=== PATIENT | male | born 1970 ===

== ENCOUNTER → 2022-02-09 11:13 | Outpatient (CLI) | payer OTHER, SELFPAY ==
[2022-02-09 11:58] LABS: COVID19 -Nasal RAPID Negative (Negative)
--- NOTE | 2022-02-14 10:17 | PM.PFT.1 ---
Pulmonary Function Test Referral & Results Date Patient Seen: 02/09/22 Requesting provider: Norbert Villatoro Results: The spirometry demonstrates an FVC of 4.77 L which is 88% of predicted. The FEV1 was measured at 3.50 L which is 83% of predicted. The FEV1/FVC ratio was 73 which is 94% of predicted. Following the administration of bronchodilator there was a 14% improvement in FEV1 and a 96% improvement in FEF 25-75%. Interpretation: This study which was forced spirometry alone demonstrates probably mild minimal obstructive lung disease based on minimal reduction FEV1 although notable improvement in both FEV1 and FEF 25-75% after bronchodilator as above. Clinical correlation suggested
== END ==
PROVIDERS: Referring Provider Chiropractor; Visit Provider Chiropractor
DX: J45.998 Other asthma (principal); J30.9 Allergic rhinitis, unspecified; Z20.822 Contact with and (suspected) exposure to COVID-19
CPT/HCPCS: 87635; 94060; C9803